=== PATIENT | female | born 1965 | race Hispanic/Latino ===

== ENCOUNTER → 2018-04-28 | Outpatient (CLI) | payer OTHER ==
--- NOTE | 2018-04-28 12:34 | Diagnostic Imaging Report ---
PROCEDURE:TRANSVAGINAL ULTRASOUND COMPARISON:CT of the abdomen and pelvis from 09/05/2017 INDICATIONS:ABNORMAL UTERINE/VAGINAL BLEEDING TECHNIQUE: Grayscale transverse and sagittal transabdominal and transvaginal images were obtained of the pelvis. Transvaginal imaging was medically necessary to better visualize the ovaries. 52-year-old female, G4, P2, A2, hysterectomy in 2006 FINDINGS: UTERUS: The uterus is absent. RIGHT OVARY: The right ovary measures 2.1 x 1.1 x 0.8 cm. A simple cyst in the right ovary measures 1.4 x 0.9 x 0.9 cm. There is a complex, thickwalled lesion in the right ovary with peripheral vascularity that measures 1.3 x 1.2 x 1.0 cm. A right ovarian or parovarian cyst measures 2.2 x 2.0 x 1.8 cm. LEFT OVARY: The left ovary measures 3.2 x 1.6 x 1.4 cm. There is a simple cyst in the left ovary which measures 1.2 x 1.0 x 1.1 cm. There is also a 3 mm calcification in the left ovary. There is no free fluid within the pelvis. No adnexal masses. CONCLUSION: Status post hysterectomy. There is a complex thickwalled lesion in the right ovary which measures 1.3 cm and is indeterminate. Recommend followup ultrasound in 6-12 weeks to ensure resolution. Additional simple cysts in both ovaries most likely represent benign follicular cysts. Dictated by: Robinson Morris M.D. on 04/28/2018 at 12:40 Electronically approved by: Robinson Morris M.D. on 04/28/2018 at 12:40
--- NOTE | 2018-04-28 12:37 | Diagnostic Imaging Report ---
PROCEDURE:US PELVIS COMPLETE NON OB COMPARISON:None. INDICATIONS:ABNORMAL UTERINE/VAGINAL BLEEDING CONCLUSION: Please refer to transvaginal ultrasound performed at the same date and time for full dictated report. Dictated by: Robinson Morris M.D. on 04/28/2018 at 12:43 Electronically approved by: Robinson Morris M.D. on 04/28/2018 at 12:43
== END ==
LOC: US 10:47
PROVIDERS: ATTEND Internal Medicine
DX: R10.32 Left lower quadrant pain (principal); N93.9 Abnormal uterine and vaginal bleeding, unspecified; Z90.710 Acquired absence of both cervix and uterus
CPT/HCPCS: 76830; 76856